=== PATIENT | female | born 1995 | race Caucasian/White ===

== ENCOUNTER 2019-06-12 22:53 | Inpatient (IN) | payer OTHER ==
[~2019-06-12] VITALS: Ht 160 cm; Wt 54.4 kg
[2019-06-12 23:05] VITALS: BP 138/92
--- NOTE | 2019-06-12 23:08 | NUR ---
ED Nurse Note: Walk-in patient presents alone, with complaints of right leg cramping and soreness since the fifith. Patient is ambulatory with steady gait and A&Ox4. Will continue to monitor.
--- NOTE | 2019-06-12 23:39 | NUR ---
ED Nurse Note: Patient went down for ultrasound.
--- NOTE | 2019-06-12 23:52 | Emergency Room Report ---
History of Present Illness General Chief Complaint: General Complaint Source: Patient Present Illness HPI 23-year-old female presents ED for evaluation. States she has been having right calf pain for the last 5 days. Started after a flight. States she feels that the calf is slightly more swollen than the left calf. Pain is dull, 7 out of 10, nonradiating. Denies any fall or injury. Denies chest pain or shortness of breath. No other aggravating relieving factors. Denies any other associated symptoms Allergies: Coded Allergies: No Known Allergies (Unverified , 06/12/19) Patient History Past Medical History: none Past Surgical History: none Pertinent Family History: none Social History: Denies: smoking, alcohol use, drug use Last Menstrual Period: control Now: No Immunizations: UTD Reviewed Nursing Documentation: PMH: Agreed; PSxH: Agreed Nursing Documentation-PMH Past Medical History: No History, Except For Review of Systems All Other Systems: negative except mentioned in HPI Physical Exam Vital Signs Date Time Temp Pulse Resp B/P (MAP) Pulse Ox O2 Delivery O2 Flow Rate FiO2 06/12/19 22:54 98.8 95 16 138/92 (107) 97 Room Air Sp02 EP Interpretation: reviewed, normal General Appearance: no apparent distress, alert, GCS 15, non-toxic Head: normocephalic Eyes: bilateral eye normal inspection, bilateral eye PERRL ENT: normal ENT inspection Neck: normal inspection Respiratory: chest non-tender, lungs clear, normal breath sounds, speaking full sentences Cardiovascular #1: regular rate, rhythm, no edema Gastrointestinal: normal inspection Rectal: deferred Genitourinary: no CVA tenderness Musculoskeletal: calf tenderness - right Neurologic: alert, oriented x3, responsive, motor strength/tone normal, sensory intact, speech normal Psychiatric: normal inspection Skin: no rash Lymphatic: normal inspection Medical Decision Making Diagnostic Impression: Primary Impression: DVT (deep venous thrombosis) Qualified Codes: I82.441 - Acute embolism and thrombosis of right tibial vein ER Course Hospital Course 23-year-old female presents ED with R leg pain and swelling. Differential diagnoses include: DVT, cellulitis, contusion, abscess Clinical course Patient placed on stretcher after initial history and physical I ordered venous Duplex Venous Duplex shows acute thrombus in R posterior tibialis Labs reviewed- electrolytes okay, hemoglobin/hematocrit stable, coags ok Patient given Lovenox in ED. patient will be admitted to Dr Jackman's service. I. I feel this is a highly complex case requiring extensive working including EKG/Rhythm strip, Xray/CT/US, Blood/urine lab work, repeat exams while in ED, and administration of strong opiates/narcotics for pain control, admission to hospital or close patient follow up. Diagnosis - DVT admitted to floor in serious condition Labs Test 06/13/19 00:19 White Blood Count 9.6 K/UL (4.8-10.8) Red Blood Count 4.84 M/UL (4.20-5.40) Hemoglobin 15.2 G/DL (12.0-16.0) Hematocrit 42.6 % (37.0-47.0) Mean Corpuscular Volume 88 FL (80-99) Mean Corpuscular Hemoglobin 31.4 PG (27.0-31.0) Mean Corpuscular Hemoglobin Concent 35.7 G/DL (32.0-36.0) Red Cell Distribution Width 10.9 % (11.6-14.8) Platelet Count 313 K/UL (150-450) Mean Platelet Volume 6.8 FL (6.5-10.1) Neutrophils (%) (Auto) 55.0 % (45.0-75.0) Lymphocytes (%) (Auto) 34.1 % (20.0-45.0) Monocytes (%) (Auto) 8.5 % (1.0-10.0) Eosinophils (%) (Auto) 0.5 % (0.0-3.0) Basophils (%) (Auto) 1.9 % (0.0-2.0) Prothrombin Time 11.0 SEC (9.30-11.50) Prothromb Time International Ratio 1.0 (0.9-1.1) Activated Partial Thromboplast Time 27 SEC (23-33) Urine Color Pale yellow Urine Appearance Clear Urine pH 7 (4.5-8.0) Urine Specific [place] 1.005 (1.005-1.035) Urine Protein Negative (NEGATIVE) Urine Glucose (UA) Negative (NEGATIVE) Urine Ketones Negative (NEGATIVE) Urine Blood Negative (NEGATIVE) Urine Nitrite Negative (NEGATIVE) Urine Bilirubin Negative (NEGATIVE) Urine Urobilinogen Normal MG/DL (0.0-1.0) Urine Leukocyte Esterase Negative (NEGATIVE) Urine HCG, Qualitative Negative (NEGATIVE) Sodium Level 142 MMOL/L (136-145) Potassium Level 3.5 MMOL/L (3.5-5.1) Chloride Level 106 MMOL/L (98-107) Carbon Dioxide Level 29 MMOL/L (21-32) Anion Gap 7 mmol/L (5-15) Blood Urea Nitrogen 11 mg/dL (7-18) Creatinine 0.8 MG/DL (0.55-1.30) Estimat Glomerular Filtration Rate > 60 mL/min (>60) Glucose Level 89 MG/DL (74-106) Calcium Level 9.2 MG/DL (8.5-10.1) Total Bilirubin 0.5 MG/DL (0.2-1.0) Aspartate Amino Transf (AST/SGOT) 15 U/L (15-37) Alanine Aminotransferase (ALT/SGPT) 20 U/L (12-78) Alkaline Phosphatase 43 U/L (46-116) Total Protein 8.1 G/DL (6.4-8.2) Albumin 4.3 G/DL (3.4-5.0) Globulin 3.8 g/dL Albumin/Globulin Ratio 1.1 (1.0-2.7) CT/MRI/US Diagnostic Results CT/MRI/US Diagnostic Results : Imaging Test Ordered: Venous Duplex RLE Impression DVT posterior tibialis Last Vital Signs Date Time Temp Pulse Resp B/P (MAP) Pulse Ox O2 Delivery O2 Flow Rate FiO2 06/12/19 23:05 95 16 Room Air 06/12/19 23:05 98.8 138/92 97 Status: improved Disposition: ADMITTED INPATIENT Condition: Serious Job Gant MD Jun 12, 2019 23:52
[2019-06-13] VITALS (7 sets, daily range): BP systolic 114–129; BP diastolic 67–93
--- NOTE | 2019-06-13 00:12 | NUR ---
ED Nurse Note: Patient returned from Ultrasound.
[2019-06-13 00:45] LABS: BASOPHILS % (AUTO) 1.9 % (0.0-2.0); EOSINOPHILS % (AUTO) 0.5 % (0.0-3.0); HEMATOCRIT 42.6 % (37.0-47.0); HEMOGLOBIN 15.2 G/DL (12.0-16.0); LYMPHOCYTES % (AUTO) 34.1 % (20.0-45.0); MEAN CORPUSCULAR VOLUME 88 FL (80-99); MONOCYTES % (AUTO) 8.5 % (1.0-10.0); PLATELET COUNT 313 K/UL (150-450); RED BLOOD COUNT 4.84 M/UL (4.20-5.40); RED CELL DISTRIBUTION WIDTH 10.9 % (11.6-14.8); WHITE BLOOD COUNT 9.6 K/UL (4.8-10.8)
[2019-06-13 00:48] LABS: APPEARANCE,URINE CLEAR; BILIRUBIN, URINE NEGATIVE (NEGATIVE); COLOR,URINE PALE YELLOW; GLUCOSE, URINE (UA) NEGATIVE (NEGATIVE); KETONES,URINE NEGATIVE (NEGATIVE); LEUKOCYTE ESTERASE ,URINE NEGATIVE (NEGATIVE); NITRITE,URINE NEGATIVE (NEGATIVE); PH,URINE 7 (4.5-8.0); PROTEIN,URINE NEGATIVE (NEGATIVE); UROBILINOGEN,URINE NORMAL MG/DL (0.0-1.0)
--- NOTE | 2019-06-13 00:50 | Diagnostic Imaging Report ---
Indication: Right lower extremity pain and swelling. Technique: Duplex Doppler imaging performed from the right common femoral vein to the popliteal vein. FINDINGS: Normal compressibility demonstrated from the common femoral vein to the popliteal vein. Respiratory phasicity and good augmentation demonstrated on waveform analysis. There is some thrombus noted within one of the branches of the posterior tibial vein below the calf. The posterior tibial vein appears duplicated in the right leg. IMPRESSION: No evidence of DVT from the popliteal vein through the common femoral veins bilaterally. One of the branches of the posterior tibial vein appears thrombosed.
[2019-06-13 00:51] LABS: ANION GAP 7 mmol/L (5-15); BLOOD UREA NITROGEN 11 mg/dL (7-18); CALCIUM 9.2 MG/DL (8.5-10.1); CARBON DIOXIDE 29 MMOL/L (21-32); CHLORIDE 106 MMOL/L (98-107); CREATININE 0.8 MG/DL (0.55-1.30); POTASSIUM 3.5 MMOL/L (3.5-5.1); SODIUM 142 MMOL/L (136-145)
[2019-06-13 00:56] LABS: ALANINE AMINOTRANSFERASE 20 U/L (12-78); ALBUMIN 4.3 G/DL (3.4-5.0); ALBUMIN/GLOBULIN RATIO 1.1 (1.0-2.7); ALKALINE PHOSPHATASE 43 U/L (46-116); ASPARTATE AMINO TRANSFERASE 15 U/L (15-37); BILIRUBIN,TOTAL 0.5 MG/DL (0.2-1.0)
[2019-06-13] MEDS ORDERED: Enoxaparin 60mg Inj SUBQ ONE (01:00)
--- NOTE | 2019-06-13 01:41 | NUR ---
ED Nurse Note: Report called in to Scott KERN.
--- NOTE | 2019-06-13 02:02 | NUR ---
ED Nurse Note: Patient transported to floor without incident.
--- NOTE | 2019-06-13 02:15 | NUR ---
NURSE NOTES: Report given by Malia in ED. Patient arrived by edgar at 0200. Patient is awake, alert and oriented x4. No signs of distress or SOB at this time. C/O RLE pain 02/09. Belongings checked with patient, form signed by patient. Skin intact but RLE swelling noted. Patient has medication at bedside but refused to have them sent to pharmacy. Left AC 20g IV intact and patent. Bed locked and in lowest position. Call light in reach. Called MD for admission orders. Waiting for callback. Will continue to monitor. VS: Temp - 97.7 HR: 101 RR: 20 BP: 121/78 O2 100% Addendum: 06/13/19 at 0356 by JOSEPHINE SUTTON RN Educated patient regarding medication interactions
[2019-06-13] MEDS ORDERED: VENTOLIN HFA18 GM INH (02:34)
[2019-06-13] MEDS ORDERED: ZYRTEC10 MG ORAL (02:34)
[2019-06-13] MEDS ORDERED: LO LOESTRIN FE1 EAC1 PO (02:34)
[2019-06-13] MEDS ORDERED: SYMBICORT 80-10.2 G1 IH (02:34)
[2019-06-13] MEDS ORDERED: Albuterol 90mcg Inhaler 8gm INH PRN (07:15)
--- NOTE | 2019-06-13 07:30 | NUR ---
NURSE NOTES: Spoke with Dr. Allen and received admission orders. Will follow plan of care.
--- NOTE | 2019-06-13 07:48 | NUR ---
HAND-OFF: Report given to ERLIN Hugo.
--- NOTE | 2019-06-13 07:49 | NUR ---
HAND-OFF: Report given to ERLIN Hugo.
--- NOTE | 2019-06-13 07:52 | NUR ---
NURSE NOTES: Received patient from Bri Flores. patient is awake in bed. Complaining of Nausea, PRN zofran administered. Refusing to have right side rail up. reminded Re: safety precautions. call abreu within patients reached. will follow.
[2019-06-13] MEDS: traMADol 50mg tab ORAL PRN ×2 (11:26→20:18)
[2019-06-13] MEDS ORDERED: Enoxaparin 60mg Inj SUBQ SCH (13:00)
--- NOTE | 2019-06-13 16:15 | History and Physical Report ---
DATE OF ADMISSION: 06/13/2019 TIME SEEN: 9 a.m. CONSULTANTS: Dr. Allen. CHIEF COMPLAINT: Right lower extremity swelling, DVT. BRIEF HISTORY: This is a 23-year-old female, who [place], apparently 7 days ago came in with some leg pain, anyway did not see doctor, right leg started swelling, slightly tender over the last couple days, came to [place], diagnosed with right lower extremity DVT, admitted to medical floor for further treatment. Currently, calm in bed, actually slightly anxious in bed, wants to leave, no complaints. REVIEW OF SYSTEMS: No chest pain. Slight short of breath. No nausea, vomiting, or diarrhea. PAST MEDICAL HISTORY: Includes fibromyalgia and endometriosis. PAST SURGICAL HISTORY: Nose surgery in 2014. MEDICATIONS: Include enoxaparin, Tylenol, Proventil, and Zofran. ALLERGIES: Denies. SOCIAL HISTORY: No smoking. No alcohol. Positive marijuana use. MEDICATIONS: She takes PCP. PHYSICAL EXAMINATION: GENERAL: Calm in bed, oriented x3, no acute distress. VITAL SIGNS: Temperature 97, pulse 92, respiratory rate 18, blood pressure 117/77 CARDIOVASCULAR: No murmur. LUNGS: Distant and clear. ABDOMEN: Positive bowel sound positive. Nontender. Nondistended. EXTREMITIES: No cyanosis, or edema. NEUROLOGIC: The patient moves all extremities, slightly weak. LABORATORY DATA: Labs, at this time, show CBC is normal. BMP, alkaline phosphatase 43, otherwise normal. INR is 1.0, PTT is 27. Urinalysis is negative. ASSESSMENT: 1. Right lower extremity DVT. 2. Shortness of breath. 3. Fibromyalgia. 4. Endometriosis. PLAN: 1. Pain control. 2. Anticoagulate per Hematology. 3. CBC and BMP in the morning. 4. PT and dietary evaluation. Vidal Jackman D.O. DR: Pasquale JOB#: [id number] CC:
--- NOTE | 2019-06-13 19:51 | NUR ---
HAND-OFF: Report given to Bri Marie.Plan of care endorsed.
--- NOTE | 2019-06-13 19:59 | NUR ---
NURSE NOTES: Received patient in bed, awake, alert, oriented, may ambulate, has steady gate, IV site is clean dry and intact, VSS afebrile, call light is within reach, bed is in low position, locked and alarm is on, will continue to monitor for comfort and safety.
[2019-06-13] MEDS: Enoxaparin Sodium 300mg/3ml vial SUBQ SCH (20:57)
--- NOTE | 2019-06-13 22:54 | NUR ---
NURSE NOTES: Patient c/o pain in the back, around scapula area upon taking a breath, also slight vibration in the right leg, CN was made aware, MD's were notified as well. Vitals are 98.1, sat 100% on room air, HR 105, 135/94.
[2019-06-14] VITALS: BP 121/75
[2019-06-14] MEDS ORDERED: Omnipaue 350mg/ml 100ml vial INJ PRN (00:30)
--- NOTE | 2019-06-14 01:59 | Diagnostic Imaging Report ---
Indication: Chest pain Technique: Continuous helical transaxial imaging of the chest was obtained from the thoracic inlet to the upper abdomen during rapid intravenous contrast administration. Arterial phase of enhancement obtained. Coronal 2-D reformats were also obtained and maximum intensity projection images in multiple planes. Study obtained in a Siemens sensation [address] Automatic Exposure Control was utilized. Total Dose length Product (DLP): 347.[address] Dose Index Volume (CTDIvol): 7.4 mGy Comparison: None Findings: The pulmonary artery is well opacified and shows no filling defects. There is no adenopathy, pleural or pericardial effusions are identified. There is no aortic dissection or aneurysm identified within the chest. The lungs are clear. Visualized part of the upper abdomen is unremarkable. There is a prominent pectus excavatum present. IMPRESSION: No evidence of pulmonary embolus, aortic dissection or aneurysm. Pectus excavatum The CT scanner at [facility] is accredited by the [employer] and the scans are performed using dose optimization techniques as appropriate to a performed exam including Automatic Exposure control.
[2019-06-14 04:00] VITALS: BP 116/64
--- NOTE | 2019-06-14 07:12 | Consultation ---
Consult Note Consult Note HEMATOLOGY/ ONCOLOGY CONSULTATION DATE OF CONSULTATION: 06/13/2019 JOSÉ LUIS DUNBAR: Dr. Shyam Jackman REASON FOR REFERRAL: DVT PRESENT HISTORY OF ILLNESS: This is a 23-year-old female, who is visiting from [place] apparently 7 days ago came in with some leg pain not see doctor, right leg swelling, slightly tender over the last couple days, came to [place], diagnosed with right lower extremity DVT admitted to medical floor for further treatment. CTA Chest was done 06/14 which was negative for pulmonary embolism. Currently,slightly anxious in bed, wants to leave, however her flight was canceled she needs to go back to school for her classes. She has a notebook of multiple questions and is concerned about OCP's. We were consulted for underlying diagnosis of DVT. PAST MEDICAL HISTORY: Includes fibromyalgia and endometriosis. PAST SURGICAL HISTORY: Nose surgery in 2014. MEDICATIONS: Include enoxaparin, Tylenol, Proventil, and Zofran. ALLERGIES: Denies. SOCIAL HISTORY: No smoking. No alcohol. Positive marijuana use. MEDICATIONS: She takes OCP. ROS: 12 point system done. PHYSICAL EXAMINATION: GENERAL: anxious, oriented x3, no acute distress. VITAL SIGNS: reviewed. CARDIOVASCULAR: No murmur. LUNGS: Distant and clear. ABDOMEN: Positive bowel sound positive. Nontender. Nondistended. EXTREMITIES: No cyanosis, or edema. NEUROLOGIC: The patient moves all extremities, RLE weak. LABORATORY DATA: INR is 1.0, PTT is 27. IMAGING: CTA ANGIO CHEST Negative for pe. US VENOUS: Thrombus in one of the branches of the posterior tibialis veins. ASSESSMENT: 1. Right lower extremity DVT, likely provoked due to OCP use. --> US venous noted. --> continue lovenox she will need 3 months of long-term anticoagulation of Elquis or xarelto, will provide rx and d/w RN. 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 2. Shortness of breath. --> resolved. 3. Fibromyalgia. --> pain management. 4. Endometriosis --> follow up outpatient BANDING MACHINE OPERATOR when she returns back home The time the the patient was seen does not correspons to the time the note was written Appreciate consultation. Kristin Jack NP Jun 14, 2019 07:12
--- NOTE | 2019-06-14 07:16 | Hematology/Onc Progress Note ---
Assessment/Plan Assessment/Plan 1. Right lower extremity DVT, likely provoked due to OCP use. --> US venous noted. --> continue lovenox she will need 3 months of intermediate project manager anticoagulation of Elquis or xarelto, will provide rx and d/w RN. 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 2. Shortness of breath. --> resolved. 3. Fibromyalgia. --> pain management. 4. Endometriosis --> follow up outpatient CERTIFIED SKI PATROLLER when she returns back home The time the the patient was seen does not correspons to the time the note was written Appreciate consultation. Subjective Allergies: Coded Allergies: No Known Allergies (Unverified , 06/12/19) Subjective 06/14: pt is resting in bed, no acute distress, will rx Eliquis. Objective Objective Current Medications Medications (Trade) Dose Ordered Sig/Breonna Route PRN Reason Start Time Stop Time Status Last Admin Dose Admin Acetaminophen (Tylenol) 650 mg Q6H PRN ORAL Mild Pain/Temp > 100.5 06/13/19 07:15 07/13/19 07:14 Albuterol Sulfate (Proventil MDI) 2 puff Q6H PRN INH Shortness of Breath 06/13/19 07:15 07/13/19 07:14 06/13/19 14:12 Enoxaparin Sodium (Lovenox) 50 mg Q12HR SUBQ 06/13/19 21:00 07/13/19 20:59 06/13/19 20:57 Iohexol (Omnipaque) 100 mg NOW PRN INJ Radiology Procedure 06/14/19 00:30 06/16/19 00:25 Tramadol HCl (Ultram) 50 mg Q8H PRN ORAL Severe Pain (Pain Scale 7-10) 06/13/19 11:15 06/20/19 11:14 06/13/19 20:18 Last 24 Hour Vital Signs Date Time Temp Pulse Resp B/P (MAP) Pulse Ox O2 Delivery O2 Flow Rate FiO2 06/14/19 04:00 97.3 76 18 116/64 (81) 97 06/14/19 00:00 97.9 82 20 121/75 (90) 97 06/13/19 21:55 Room Air 06/13/19 20:51 97.9 06/13/19 20:00 97.5 73 20 125/73 (90) 96 06/13/19 16:00 97.9 102 18 129/79 (96) 97 06/13/19 14:11 99 20 99 Room Air 21 06/13/19 14:10 100 20 99 Room Air 21 06/13/19 12:00 97.9 96 18 125/70 (88) 98 06/13/19 09:00 Room Air 06/13/19 08:00 97.8 90 18 117/77 (90) 100 06/13/19 04:00 97.9 89 18 114/67 (83) 99 06/13/19 02:49 Room Air 06/13/19 02:02 98.8 96 18 128/93 100 Room Air 06/13/19 02:00 97.7 101 20 121/78 (92) 100 06/13/19 01:20 98.8 96 18 128/93 100 Room Air 06/12/19 23:05 95 16 Room Air 06/12/19 23:05 98.8 95 16 138/92 97 Room Air 06/12/19 22:54 98.8 95 16 138/92 (107) 97 Room Air Intake and Output 06/13/19 06/14/19 19:00 07:00 Intake Total 960 ml Balance 960 ml Intake Oral 960 ml Labs Test 06/13/19 00:19 White Blood Count 9.6 K/UL (4.8-10.8) Red Blood Count 4.84 M/UL (4.20-5.40) Hemoglobin 15.2 G/DL (12.0-16.0) Hematocrit 42.6 % (37.0-47.0) Mean Corpuscular Volume 88 FL (80-99) Mean Corpuscular Hemoglobin 31.4 PG (27.0-31.0) Mean Corpuscular Hemoglobin Concent 35.7 G/DL (32.0-36.0) Red Cell Distribution Width 10.9 % (11.6-14.8) Platelet Count 313 K/UL (150-450) Mean Platelet Volume 6.8 FL (6.5-10.1) Neutrophils (%) (Auto) 55.0 % (45.0-75.0) Lymphocytes (%) (Auto) 34.1 % (20.0-45.0) Monocytes (%) (Auto) 8.5 % (1.0-10.0) Eosinophils (%) (Auto) 0.5 % (0.0-3.0) Basophils (%) (Auto) 1.9 % (0.0-2.0) Prothrombin Time 11.0 SEC (9.30-11.50) Prothromb Time International Ratio 1.0 (0.9-1.1) Activated Partial Thromboplast Time 27 SEC (23-33) Urine Color Pale yellow Urine Appearance Clear Urine pH 7 (4.5-8.0) Urine Specific [place] 1.005 (1.005-1.035) Urine Protein Negative (NEGATIVE) Urine Glucose (UA) Negative (NEGATIVE) Urine Ketones Negative (NEGATIVE) Urine Blood Negative (NEGATIVE) Urine Nitrite Negative (NEGATIVE) Urine Bilirubin Negative (NEGATIVE) Urine Urobilinogen Normal MG/DL (0.0-1.0) Urine Leukocyte Esterase Negative (NEGATIVE) Urine HCG, Qualitative Negative (NEGATIVE) Sodium Level 142 MMOL/L (136-145) Potassium Level 3.5 MMOL/L (3.5-5.1) Chloride Level 106 MMOL/L (98-107) Carbon Dioxide Level 29 MMOL/L (21-32) Anion Gap 7 mmol/L (5-15) Blood Urea Nitrogen 11 mg/dL (7-18) Creatinine 0.8 MG/DL (0.55-1.30) Estimat Glomerular Filtration Rate > 60 mL/min (>60) Glucose Level 89 MG/DL (74-106) Calcium Level 9.2 MG/DL (8.5-10.1) Total Bilirubin 0.5 MG/DL (0.2-1.0) Aspartate Amino Transf (AST/SGOT) 15 U/L (15-37) Alanine Aminotransferase (ALT/SGPT) 20 U/L (12-78) Alkaline Phosphatase 43 U/L (46-116) Total Protein 8.1 G/DL (6.4-8.2) Albumin 4.3 G/DL (3.4-5.0) Globulin 3.8 g/dL Albumin/Globulin Ratio 1.1 (1.0-2.7) Height (Feet): 5 Height (Inches): 3.00 Weight (Pounds): 120 Objective PHYSICAL EXAMINATION: GENERAL: anxious, oriented x3, no acute distress. VITAL SIGNS: reviewed. CARDIOVASCULAR: No murmur. LUNGS: Distant and clear. ABDOMEN: Positive bowel sound positive. Nontender. Nondistended. EXTREMITIES: No cyanosis, or edema. NEUROLOGIC: The patient moves all extremities, RLE weak. Kristin Jack NP Jun 14, 2019 07:16
--- NOTE | 2019-06-14 07:29 | NUR ---
HAND-OFF: Report given to Patricia KERN.
[2019-06-14 07:44] LABS: BASOPHILS % (AUTO) 1.1 % (0.0-2.0); EOSINOPHILS % (AUTO) 1.1 % (0.0-3.0); HEMATOCRIT 42.6 % (37.0-47.0); HEMOGLOBIN 14.9 G/DL (12.0-16.0); LYMPHOCYTES % (AUTO) 42.9 % (20.0-45.0); MEAN CORPUSCULAR VOLUME 90 FL (80-99); MONOCYTES % (AUTO) 9.2 % (1.0-10.0); NEUTROPHILS % (AUTO) 45.6 % (45.0-75.0); PLATELET COUNT 282 K/UL (150-450); RED BLOOD COUNT 4.74 M/UL (4.20-5.40); RED CELL DISTRIBUTION WIDTH 10.4 % (11.6-14.8); WHITE BLOOD COUNT 7.2 K/UL (4.8-10.8)
[2019-06-14 07:57] LABS: ANION GAP 7 mmol/L (5-15); BLOOD UREA NITROGEN 9 mg/dL (7-18); CALCIUM 9.3 MG/DL (8.5-10.1); CARBON DIOXIDE 26 MMOL/L (21-32); CHLORIDE 106 MMOL/L (98-107); CREATININE 0.8 MG/DL (0.55-1.30); POTASSIUM 3.7 MMOL/L (3.5-5.1); SODIUM 139 MMOL/L (136-145)
--- NOTE | 2019-06-14 08:00 | NUR ---
NURSE NOTES: patient awake and alert and oriented,respirations unlabored.IV Left AC saline lock .Right leg appears larger than the left leg,pedal pulse to the the right foot strong.No complaint of pain at this time.Bed alarm is on,call light within reach.
[2019-06-14 08:35] VITALS: BP 120/85
[2019-06-14] MEDS: Enoxaparin Sodium 300mg/3ml vial SUBQ SCH (09:21)
--- NOTE | 2019-06-14 10:19 | NUR ---
*-* INSURANCE *-* ALL AVAILABLE CLINICALS HAVE BEEN FAXED TO: [facility] DAVID:NORBERTO P: [phone] F: [phone]
[2019-06-14] MEDS ORDERED: ELIQUIS5 MG PO (12:39)
--- NOTE | 2019-06-14 14:24 | NUR ---
NURSE NOTES: DR Jackman in to see patient,patient discharge today.Discharge instructions given.Patient discharge prescription was called to [facility],patient verified that prescription is at the pharmacy and waiting to be picked up.Patient family friends here to take patient home.Charge Nurse verified by Doctor that she is cleared to fly .patient understands the importance of taking medication Eliquis as ordered.Discharge information given. ID removed and ID hospital band removed.Patient has personal belonging.
--- NOTE | 2019-06-14 14:36 | General Progress Note ---
Assessment/Plan Problem List: (1) DVT (deep venous thrombosis) ICD Codes: I82.409 - Acute embolism and thrombosis of unspecified deep veins of unspecified lower extremity SNOMED: [id number] Qualifiers: Qualified Codes: I82.441 - Acute embolism and thrombosis of right tibial vein Status: stable, progressing Assessment/Plan: heme f/u dc if clear by heme Subjective Constitutional: Reports: weakness Allergies: Coded Allergies: No Known Allergies (Unverified , 06/12/19) All Systems: reviewed and negative except above Subjective calm in bed wants to leave Objective Last 24 Hour Vital Signs Date Time Temp Pulse Resp B/P (MAP) Pulse Ox O2 Delivery O2 Flow Rate FiO2 06/14/19 08:38 96 16 95 Room Air 21 06/14/19 08:36 Room Air 06/14/19 08:35 98.4 95 16 120/85 (97) 95 06/14/19 04:00 97.3 76 18 116/64 (81) 97 06/14/19 00:00 97.9 82 20 121/75 (90) 97 06/13/19 21:55 Room Air 06/13/19 20:51 97.9 06/13/19 20:00 97.5 73 20 125/73 (90) 96 06/13/19 16:00 97.9 102 18 129/79 (96) 97 Intake and Output 06/13/19 06/14/19 19:00 07:00 Intake Total 960 ml Balance 960 ml Intake Oral 960 ml Laboratory Tests 06/14/19 06:50: White Blood Count 7.2, Red Blood Count 4.74, Hemoglobin 14.9, Hematocrit 42.6, Mean Corpuscular Volume 90, Mean Corpuscular Hemoglobin 31.5H, Mean Corpuscular Hemoglobin Concent 35.1, Red Cell Distribution Width 10.4L, Platelet Count 282, Mean Platelet Volume 7.0, Neutrophils (%) (Auto) 45.6, Lymphocytes (%) (Auto) 42.9, Monocytes (%) (Auto) 9.2, Eosinophils (%) (Auto) 1.1, Basophils (%) (Auto ) 1.1, Sodium Level 139, Potassium Level 3.7, Chloride Level 106, Carbon Dioxide Level 26, Anion Gap 7, Blood Urea Nitrogen 9, Creatinine 0.8, Estimat Glomerular Filtration Rate > 60, Glucose Level 88, Calcium Level 9.3 Height (Feet): 5 Height (Inches): 3.00 Weight (Pounds): 120 General Appearance: alert EENT: normal ENT inspection Neck: normal alignment Cardiovascular: normal peripheral pulses, normal rate, regular rhythm Respiratory/Chest: chest wall non-tender, lungs clear, normal breath sounds Abdomen: normal bowel sounds, non tender, soft Extremities: normal inspection Edema: no edema noted Arm (L), no edema noted Arm (R), no edema noted Leg (L), no edema noted Leg (R), no edema noted Pedal (L), no edema noted Pedal (R), no edema noted Generalized Neurologic: responsive, motor weakness Skin: normal pigmentation, warm/dry Vidal Jackman DO Jun 14, 2019 14:36
--- NOTE | 2019-06-15 10:03 | Discharge Summary ---
BlayneJenny NP 06/15/19 1003: Discharge Summary Discharge Summary _ Discharge summary DATE OF ADMISSION: 06/13/2019 DATE OF DISCHARGE: 06/14/2019 DISCHARGED BY: Dr. Dixon REASON FOR ADMISSION: [] CONSULTANTS: compugraph operator neurologist pulmonary ID specialist GI specialist optical element coater continuous drier operator/oncologist Dr. Matos presented to emergency for evaluation complaining of the right calf pain for the last 5-day. Pain started after light. Patient felt her cough is more swollen right calf is more swollen than the left. Pain reported dull nonradiating 7 out of 10 on a scale 1-10. Patient denies any fall or injury. Patient denies chest pain or shortness of breath. Patient is on control pills. Upon evaluation patient had no leukocytosis stable hemoglobin hematocrit stable electrolytes and renal parameters urinalysis revealed no evidence of urinary tract infection urine test was negative. Venous duplex revealed no evidence of DVT from the popliteal to the common femoral veins bilaterally. 1 of the branches of the posterior tibial vein appeared to be thrombosed. Patient admitted to further management. Doppler showed acute thrombus in the right posterior tibialis. Patient received Lovenox in the emergency department and admitted for further management HOSPITAL COURSE: [] Patient admitted to medical surgical floor. And hematology consult was requested. Patient undergone CTA of the Chest which revealed no evidence of pulmonary emboli aortic dissection or aneurysm. Package Sealer Machine followed. Oral contraceptives were discontinued. Patient will need to follow-up with her [employer] for alternative control methods including nonhormonal IUD at this time OCPs are contraindicated. Pain management was addressed as the patient has a history of fibromyalgia. Due to rapid and unexpected improvement patient condition patient was discharged in 1 day. FINAL DIAGNOSES: 1. [] Right lower extremity DVT likely provoked to OCP use Fibromyalgia Endometriosis Shortness of breath resolved DISCHARGE MEDICATIONS: See Medication Reconciliation list. DISCHARGE INSTRUCTIONS: [] Patient was discharged home. 23 years old female follow up with primary care provider in one week. I have been assigned to dictate discharge summary for this account. I was not involved in the patient's management. Elian Allen MD 06/16/19 9586: Discharge Summary Discharge Summary _ Discussed case with radiologist She has a distal tibial vein thrombus that is symptomatic She needs 6 weeks of anticoagulation as opposed to 12 weeks I called her to inform her of this info She will f/u with heme in 2 weeks Jenny Cisneros NP Jun 15, 2019 10:03 Elian Allen MD Jun 16, 2019 17:41
--- NOTE | 2019-06-15 16:43 | NUR ---
*-* INSURANCE *-* DISCHARGE SUMMARY HAS BEEN FAXED TO: [facility] DAVID:NORBERTO P: [phone] F: [phone]
== END 2019-06-14 15:17 | disposition home or self-care (01) | DRG 301 ==
LOC: EMR 23:23 → 4E 06-13 01:24 → EDBEDREQ 06-13 01:31
DX: I82.441 Acute embolism and thrombosis of right tibial vein (principal); T38.4X5A Adverse effect of oral contraceptives, initial encounter; M79.7 Fibromyalgia; N80.9 Endometriosis, unspecified; R06.02 Shortness of breath
CPT/HCPCS: 36415; 71275; 80048; 80053; 81003; 81025; 85025; 85610; 85730; 93971; 94640; 94664; 96360; 96361; 96372; 99285